=== PATIENT | female | born 1970 | race American Indian/Alaskan Native ===

== ENCOUNTER 2018-01-19 04:06 | Emergency (ER) | payer MEDICAID, OTHER ==
[2018-01-19 04:10] VITALS: BMI 24.5
[2018-01-19] MEDS ORDERED: Morphine 2 mg/ml ISec IVP STA ×2 (04:23→09:31)
--- NOTE | 2018-01-19 04:26 | ED PDOC ---
Arrival/HPI - General Chief Complaint: Chest Pain Time Seen by Provider: 01/19/18 04:09 Historian: Patient - History of Present Illness Narrative History of Present Illness (Text): 01/19/18 04:23 47 year old female, with no significant past medical history, presents to the emergency department with abdominal pain, since 2 days prior. Patient states pain worsened today and is localized in the RUQ, along with associated vomiting. Patient denies any fever, chills, headache, dizziness, chest pain, shortness of breath, cough, neck pain, urinary/bowel changes, or any other complaint. Time/Duration: Prior to Arrival Past Medical History - Provider Review Nursing Documentation Reviewed: Yes - Infectious Disease Hx of Infectious Diseases: None - Tetanus Immunization Tetanus Immunization: Unknown - Past Medical History Past Medical History: No Previous - Psychiatric Hx Physical Abuse: No Hx Substance Use: No - Past Surgical History Past Surgical History: No Previous - Suicidal Assessment Feels Threatened In Home Enviroment: No Family/Social History - Physician Review Nursing Documentation Reviewed: Yes Family/Social History: No Known Family HX Hx Alcohol Use: Yes (SOCIAL) Hx Substance Use: No Allergies/Home Meds Allergies/Adverse Reactions: Allergies No Known Allergies Allergy (Verified 01/19/18 04:09) Review of Systems - Physician Review All systems were reviewed & negative as marked: Yes - Review of Systems Constitutional: Normal. absent: Fevers, Night Sweats Eyes: Normal ENT: Normal Respiratory: Normal. absent: SOB, Cough Cardiovascular: Normal. absent: Chest Pain Gastrointestinal: Abdominal Pain (RUQ), Nausea, Vomiting Genitourinary Female: Normal. absent: Urine Output Changes Musculoskeletal: Normal. absent: Neck Pain Skin: Normal Neurological: Normal. absent: Headache, Dizziness Endocrine: Normal Hemo/Lymphatic: Normal Psychiatric: Normal Physical Exam Vital Signs Reviewed: Yes Vital Signs Temp Pulse Resp BP BP Pulse Ox 01/19/18 11:57 98.2 F 69 19 98 01/19/18 10:12 65 18 125/69 100 01/19/18 09:00 68 18 128/74 100 01/19/18 07:20 65 18 131/79 100 01/19/18 05:54 68 18 132/86 100 01/19/18 04:30 127/87 01/19/18 04:20 97.6 F 68 20 127/87 100 Temperature: Afebrile Blood Pressure: Normal Pulse: Regular Respiratory Rate: Normal Appearance: Positive for: Well-Appearing, Non-Toxic, Comfortable Pain Distress: None Mental Status: Positive for: Alert and Oriented X 3 - Systems Exam Head: Present: Atraumatic, Normocephalic Pupils: Present: PERRL Extroacular Muscles: Present: EOMI Conjunctiva: Present: Normal Mouth: Present: Moist Mucous Membranes Neck: Present: Normal Range of Motion Respiratory/Chest: Present: Clear to Auscultation, Good Air Exchange. No: Respiratory Distress, Accessory Muscle Use Cardiovascular: Present: Regular Rate and Rhythm, Normal S1, S2. No: Murmurs Abdomen: Present: Tenderness (RUQ). No: Distention, Peritoneal Signs Back: Present: Normal Inspection Upper Extremity: Present: Normal Inspection. No: Cyanosis, Edema Lower Extremity: Present: Normal Inspection. No: Edema Neurological: Present: GCS=15, CN II-XII Intact, Speech Normal Skin: Present: Warm, Dry, Normal Color. No: Rashes Psychiatric: Present: Alert, Oriented x 3, Normal Insight, Normal Concentration Medical Decision Making ED Course and Treatment: 01/19/18 04:28 Impression: 47 year old female presents with RUQ pain and vomiting. Plan: -- EKG -- Morphine -- Zofran -- Labs -- Urinalysis -- Reassess and disposition Prior Visits: Notes and results from previous visits were reviewed. Progress Notes: - Lab Interpretations Lab Results: 01/19/18 04:30 01/19/18 04:30 Lab Results 01/19/18 07:45: Urine HCG, Qual Negative 01/19/18 07:45: Urine Color Yellow, Urine Appearance Clear, Urine pH 8.0, Ur Specific [place] 1.015, Urine Protein Trace H, Urine Glucose (UA) Negative, Urine Ketones >=80, Urine Blood Negative, Urine Nitrate Negative, Urine Bilirubin Negative, Urine Urobilinogen 0.2, Ur Leukocyte Esterase Negative, Urine RBC 0 - 2, Urine WBC 1 - 3, Ur Epithelial Cells 4 - 5, Amorphous Sediment Moderate, Urine Bacteria Many, Urine Other Uyeast 01/19/18 04:30: Beta HCG, Quant < 2.39 01/19/18 04:30: Sodium 140, Potassium 4.0, Chloride 105, Carbon Dioxide 23, Anion Gap 15, BUN 14, Creatinine 0.7, Est GFR ( Amer) > 60, Est GFR (Non- Af Amer) > 60, Random Glucose 111 H, Calcium 10.0, Total Bilirubin 0.6, AST 30, ALT 22, Alkaline Phosphatase 59, Lactate Dehydrogenase 585, Total Creatine Kinase 143, Troponin I < 0.01, Total Protein 8.6 H, Albumin 4.9 H, Globulin 3.8 , Albumin/Globulin Ratio 1.3, Amylase 92, Lipase 41 01/19/18 04:30: PT 11.8, INR 1.03, APTT 28.6 01/19/18 04:30: WBC 7.8 D, RBC 4.42, Hgb 14.3, Hct 41.6, MCV 94.1, MCH 32.4, MCHC 34.4, RDW 14.3, Plt Count 215, MPV 9.6, Gran % 61.6, Lymph % (Auto) 28.3, [place] % (Auto) 8.5 H, Eos % (Auto) 1.3 L, Baso % (Auto) 0.3, Gran # 4.80, Lymph # (Auto) 2.2, [place] # (Auto) 0.7 H, Eos # (Auto) 0.1, Baso # (Auto) 0.02 - RAD Interpretation Radiology Orders: 01/19/18 06:24 GALL BLADDER [US] Stat - EKG Interpretation EKG Interpretation (Text): 01/19/18 06:29 nsr rate 80 - Medication Orders Current Medication Orders: Discontinued Medications Sodium Chloride (Sodium Chloride 0.9%) 1,000 mls @ 80 mls/hr IV .[id number] [facility] Last Admin: 01/19/18 04:49 Dose: 80 mls/hr eMAR Start Stop Document 01/19/18 04:49 JINA (Rec: 01/19/18 04:49 RG [id number]) Intravenous Solution Start Date 01/19/18 Start Time 04:49 Piperacillin Sod/Tazobactam Sod (Zosyn 4.5 Gm In Ns 100ml) 4.5 gm in 100 mls @ 200 mls/hr IVPB STAT STA PRN Reason: Protocol Stop: 01/19/18 09:57 Last Admin: 01/19/18 10:07 Dose: 200 mls/hr eMAR Start Stop Document 01/19/18 10:07 CLAIRE (Rec: 01/19/18 10:[address] [facility] [place]-[id number]) Intravenous Solution Start Date 01/19/18 Start Time 10:07 End Date 01/19/18 End time 10:37 Total Infusion Time 30 Morphine Sulfate (Morphine) 2 mg IVP STAT STA Stop: 01/19/18 04:24 Last Admin: 01/19/18 04:45 Dose: 2 mg MAR Pain Assessment Document 01/19/18 04:45 (Rec: 01/19/18 04:48 [id number] Pain Reassessment Is this a pain reassessment? Yes Sleep Is patient sleeping during reassessment? No Presence of Pain Presence of Pain Yes Pain Scale Used Pain Scale Used Numeric Location Left, Right or Bilateral Right Upper or Lower Upper Pain Location Body Site Abdomen Description Description Pressure Pain Behavior Crying Guarding Withdrawal from Touch Facial Grimacing IVP Administration Document 01/19/18 04:45 RG (Rec: 01/19/18 04:48 [id number] Charges for Administration # of IVP Administrations 1 Re-Assess: MAR Pain Assessment Document 01/19/18 05:45 RG (Rec: 01/19/18 06:13 [id number] Pain Reassessment Is this a pain reassessment? Yes Sleep Is patient sleeping during reassessment? No Presence of Pain Presence of Pain Yes Description Pain not relieved and LIP/MD was Yes notified Morphine Sulfate (Morphine) 2 mg IVP Q4H PRN PRN Reason: Pain, moderate (4-7) Last Admin: 01/19/18 05:53 Dose: 2 mg MAR Pain Assessment Document 01/19/18 05:53 RG (Rec: 01/19/18 05:54 [id number]) Pain Reassessment Is this a pain reassessment? Yes Sleep Is patient sleeping during reassessment? No Presence of Pain Presence of Pain Yes Pain Scale Used Pain Scale Used Numeric Location Left, Right or Bilateral Bilateral Upper or Lower Upper Pain Location Body Site Abdomen Description Description Pressure Pain Behavior Crying Rubbing Site Aggravating Factors Contant Pain not relieved and LIP/MD was Yes notified IVP Administration Document 01/19/18 05:53 RG (Rec: 01/19/18 05:54 [id number]) Charges for Administration # of IVP Administrations 1 Morphine Sulfate (Morphine) 2 mg IVP STAT STA Stop: 01/19/18 09:32 Last Admin: 01/19/18 10:06 Dose: 2 mg MAR Pain Assessment Document 01/19/18 10:06 CLAIRE (Rec: 01/19/18 10:06 [id number]) Pain Reassessment Is this a pain reassessment? Yes Sleep Is patient sleeping during reassessment? Yes Location Upper or Lower Upper Pain Location Body Site Abdomen Description Intensity of Pain at present 8 IVP Administration Document 01/19/18 10:06 CLAIRE (Rec: 01/19/18 10:06 [facility] [id number]) Charges for Administration # of IVP Administrations 1 Ondansetron HCl (Zofran Inj) 4 mg IVP STAT STA Stop: 01/19/18 04:24 Last Admin: 01/19/18 04:42 Dose: 4 mg IVP Administration Document 01/19/18 04:42 RG (Rec: 01/19/18 04:48 RG [id number]) Charges for Administration # of IVP Administrations 1 - Transfer of Care Patient signed out to Dr:: mary harris and dispo - Scribe Statement The provider has reviewed the documentation as recorded by the Scribmerced Cowan Provider Scribe Attestation: All medical record entries made by the Scribe were at my direction and personally dictated by me. I have reviewed the chart and agree that the record accurately reflects my personal performance of the history, physical exam, medical decision making, and the department course for this patient. I have also personally directed, reviewed, and agree with the discharge instructions and disposition. Disposition/Present on Arrival - Present on Arrival Any Indicators Present on Arrival: No History of DVT/PE: No History of Uncontrolled Diabetes: No Urinary Catheter: No History of Decub. Ulcer: No History Surgical Site Infection Following: None - Disposition Have Diagnosis and Disposition been Completed?: Yes Diagnosis: Biliary colic Disposition Time: 07:00 Condition: FAIR Discharge Instructions (ExitCare): Gallstones (DC) Additional Instructions: AMARILYS BOWMAN, thank you for letting us take care of you today. Your provider was Fortunato De Los Santos DO and you were treated for Gallstones. The emergency medical care you received today was directed at your acute symptoms. If you were prescribed any medication, please fill it and take as directed. It may take several days for your symptoms to resolve. Return to the Emergency Department if your symptoms worsen, do not improve, or if you have any other problems. You signed against medical advice and we recommend that you stay but since you are leaving I recommend you return to the ED if you have any symptoms, especially if they get worse. Please contact your doctor or call one of the physicians/clinics you have been referred to that are listed on the Patient Visit Information form that is included in your discharge packet. Bring any paperwork you were given at discharge with you along with any medications you are taking to your follow up visit. Our treatment cannot replace ongoing medical care by a primary care provider outside of the emergency department. Thank you for allowing the [facility] team to be part of your care today. If you had an X-Ray or CT scan: A Radiologist will review the ED reading if any change in treatment is needed we will contact you. If you had a blood, urine, or wound culture: It will take several days for the results, if any change in treatment is needed we will contact you. If you had an STI test: It will take 48 hours for the results. Please call after 1 week if you have not heard back. Prescriptions: Ciprofloxacin [Cipro] 500 mg PO Q12 #10 tab metroNIDAZOLE [Flagyl] 500 mg PO TID #15 tab Acetaminophen [Tylenol Extra Strength] 500 mg PO Q4 #30 tablet Ranitidine HCl [Zantac] 150 mg PO BID PRN #30 tablet PRN Reason: Pain, Mild (1-3) Referrals: Sandra Brown MD [Primary Care Provider] - Follow up with primary Ameya Mota MD [Staff Provider] - Follow up with primary Bladimir Hughes MD [Medical Doctor] - Follow up with primary Forms: [employer] (Mexican), WORK NOTE
[2018-01-19] MEDS ORDERED: Sodium Chloride 0.9% 1,000 ML IV SCH (04:30)
[2018-01-19 05:28] LABS: BASO # 0.02 K/mm3 (0.0-2.0); BASO % 0.3 % (0.0-3.0); EOS # 0.1 (0.0-0.7); EOS % 1.3 % (1.5-5.0); GRAN # 4.8 (1.4-6.5); GRAN % 61.6 % (50.0-68.0); HEMOGLOBIN 14.3 g/dL (12.0-16.0); LYMPH # 2.2 (1.2-3.4); LYMPH % 28.3 % (22.0-35.0); MEAN CELL VOLUME 94.1 fl (80.0-105.0); MEAN CORPUSCULAR HEMOGLOBIN 32.4 pg (25.0-35.0); MEAN CORPUSCULAR HGB CONC 34.4 g/dl (31.0-37.0); MEAN PLATELET VOLUME 9.6 fl (7.0-11.0); MONO # 0.7 (0.1-0.6); MONO % 8.5 % (1.0-6.0); RBC 4.42 10^6/uL (3.5-6.1); RED CELL DISTRIBUTION WIDTH 14.3 % (11.5-14.5); WHITE BLOOD COUNT 7.8 10^3/ul (4.5-11.0)
[2018-01-19 05:30] LABS: ALB/GLOB RATIO 1.3 (1.1-1.8); ALBUMIN 4.9 g/dL (3.0-4.8); ALT/SGPT 22 U/L (7-56); AMYLASE 92 U/L (35-125); AST/SGOT 30 U/L (14-36); BLOOD UREA NITROGEN 14 mg/dL (7-21); GFR NON-AFRICAN AMERICAN > 60; LIPASE 41 U/L (23-300)
[2018-01-19 05:40] LABS: INR 1.03; PARTIAL THROMBOPLASTIN TIME 28.6 Seconds (25.1-36.5); PROTHROMBIN TIME 11.8 SECONDS (9.4-12.5)
[2018-01-19 05:41] LABS: TROPONIN I < 0.01 ng/mL
[2018-01-19] MEDS ORDERED: Morphine 2 mg/ml ISec IVP PRN (05:47)
--- NOTE | 2018-01-19 07:35 | ED PDOC ---
Physical Exam Vital Signs Temp Pulse Resp BP BP Pulse Ox 01/19/18 10:12 65 18 125/69 100 01/19/18 09:00 68 18 128/74 100 01/19/18 07:20 65 18 131/79 100 01/19/18 05:54 68 18 132/86 100 01/19/18 04:30 127/87 01/19/18 04:20 97.6 F 68 20 127/87 100 Medical Decision Making ED Course and Treatment: 01/19/18 07:05 Case endorsed to me by Dr. Chaney pending Gallbladder Ultrasound, Urinalysis, reassessment, and disposition. EXAM: US Abdomen Limited, Right Upper Quadrant Dictated and Authenticated by: Alisha Andrade MD 01/19/2018 7:12 AM IMPRESSION: There are multiple gallstones some of which are stuck in the gallbladder neck and are mobile. 3 mm gallbladder wall.There was no right upper quadrant tenderness during the sonographic examination. Correlation with patient's pain medication status is recommended. Correlation with clinical data is recommended to evaluate for acute obstructive cholecystitis. 01/19/18 07:38 On re-examination, patient has epigastric and right upper quadrant tenderness with guarding. Ultrasound reviewed by me with gallstones. president financial institution paged. 01/19/18 07:57 Case discussed with surgical attendant who is aware and agree with the plan. Page sent out to Dr. Shelby Posey surgical attending. 01/19/18 08:26 Case discussed with surgical attending, Dr. Posey who agrees to admit her under his service for possible surgery. I discussed this with the patient but she is unsure at this time whether she wants to be admitted and will wait for the surgical team to come and see her. Morphine given for more pain control. Patient does not want to stay in the hospital. She wants to go home because she has a job she needs to attend to. She waiting for surgical team to see her. Dr. Posey recommended Zosyn IV. If she doesn't agree to stay he recommends sending her home AMA with Cipro and Flagyl x 5 days. 01/19/18 11:33 Leaving Against Medical Advice (AMA): The patient is choosing to leave against medical advice. I have personally explained to the patient that choosing to do so may result in permanent bodily harm or . I have discussed at great length that without further evaluation and monitoring there may be unforeseen circumstances and/or deterioration causing permanent bodily harm or as a result of their choice. The patient is alert, oriented, and shows the mental capacity to make clear decisions regarding the patients health care at this time. The patient continues to wish to leave against medical advice. In light of the patients decision to leave against medical advice, follow-up has been arranged and the patient is aware of the importance to following up as instructed. The patient has been advised that they should return to the emergency room immediately if they change their mind at any time, or if their condition begins to change or worsen in any way. 01/19/18 12:44 - Lab Interpretations Lab Results: 01/19/18 04:30 01/19/18 04:30 Lab Results 01/19/18 07:45: Urine HCG, Qual Negative 01/19/18 07:45: Urine Color Yellow, Urine Appearance Clear, Urine pH 8.0, Ur Specific [place] 1.015, Urine Protein Trace H, Urine Glucose (UA) Negative, Urine Ketones >=80, Urine Blood Negative, Urine Nitrate Negative, Urine Bilirubin Negative, Urine Urobilinogen 0.2, Ur Leukocyte Esterase Negative, Urine RBC 0 - 2, Urine WBC 1 - 3, Ur Epithelial Cells 4 - 5, Amorphous Sediment Moderate, Urine Bacteria Many, Urine Other Uyeast 01/19/18 04:30: Beta HCG, Quant < 2.39 01/19/18 04:30: Sodium 140, Potassium 4.0, Chloride 105, Carbon Dioxide 23, Anion Gap 15, BUN 14, Creatinine 0.7, Est GFR ( Amer) > 60, Est GFR (Non- Af Amer) > 60, Random Glucose 111 H, Calcium 10.0, Total Bilirubin 0.6, AST 30, ALT 22, Alkaline Phosphatase 59, Lactate Dehydrogenase 585, Total Creatine Kinase 143, Troponin I < 0.01, Total Protein 8.6 H, Albumin 4.9 H, Globulin 3.8 , Albumin/Globulin Ratio 1.3, Amylase 92, Lipase 41 01/19/18 04:30: PT 11.8, INR 1.03, APTT 28.6 01/19/18 04:30: WBC 7.8 D, RBC 4.42, Hgb 14.3, Hct 41.6, MCV 94.1, MCH 32.4, MCHC 34.4, RDW 14.3, Plt Count 215, MPV 9.6, Gran % 61.6, Lymph % (Auto) 28.3, [place] % (Auto) 8.5 H, Eos % (Auto) 1.3 L, Baso % (Auto) 0.3, Gran # 4.80, Lymph # (Auto) 2.2, [place] # (Auto) 0.7 H, Eos # (Auto) 0.1, Baso # (Auto) 0.02 - RAD Interpretation Radiology Orders: 01/19/18 06:24 GALL BLADDER [US] Stat - Medication Orders Current Medication Orders: Sodium Chloride (Sodium Chloride 0.9%) 1,000 mls @ 80 mls/hr IV .[id number] Last Admin: 01/19/18 04:49 Dose: 80 mls/hr eMAR Start Stop Document 01/19/18 04:49 (Rec: 01/19/18 04:49 [id number]) Intravenous Solution Start Date 01/19/18 Start Time 04:49 Morphine Sulfate (Morphine) 2 mg IVP Q4H PRN PRN Reason: Pain, moderate (4-7) Last Admin: 01/19/18 05:53 Dose: 2 mg MAR Pain Assessment Document 01/19/18 05:53 (Rec: 01/19/18 05:54 [id number] Pain Reassessment Is this a pain reassessment? Yes Sleep Is patient sleeping during reassessment? No Presence of Pain Presence of Pain Yes Pain Scale Used Pain Scale Used Numeric Location Left, Right or Bilateral Bilateral Upper or Lower Upper Pain Location Body Site Abdomen Description Description Pressure Pain Behavior Crying Rubbing Site Aggravating Factors Contant Pain not relieved and LIP/MD was Yes notified IVP Administration Document 01/19/18 05:53 (Rec: 01/19/18 05:54 [id number]) Charges for Administration # of IVP Administrations 1 Discontinued Medications Piperacillin Sod/Tazobactam Sod (Zosyn 4.5 Gm In Ns 100ml) 4.5 gm in 100 mls @ 200 mls/hr IVPB STAT STA PRN Reason: Protocol Stop: 01/19/18 09:57 Last Admin: 01/19/18 10:07 Dose: 200 mls/hr eMAR Start Stop Document 01/19/18 10:07 CLAIRE (Rec: 01/19/18 10:07 [id number]) Intravenous Solution Start Date 01/19/18 Start Time 10:07 End Date 01/19/18 End time 10:37 Total Infusion Time 30 Morphine Sulfate (Morphine) 2 mg IVP STAT STA Stop: 01/19/18 04:24 Last Admin: 01/19/18 04:45 Dose: 2 mg [facility] Pain Assessment Document 01/19/18 04:45 RG (Rec: 01/19/18 04:48 [id number] Pain Reassessment Is this a pain reassessment? Yes Sleep Is patient sleeping during reassessment? No Presence of Pain Presence of Pain Yes Pain Scale Used Pain Scale Used Numeric Location Left, Right or Bilateral Right Upper or Lower Upper Pain Location Body Site Abdomen Description Description Pressure Pain Behavior Crying Guarding Withdrawal from Touch Facial Grimacing IVP Administration Document 01/19/18 04:45 RG (Rec: 01/19/18 04:48 [id number] Charges for Administration # of IVP Administrations 1 Re-Assess: [facility] Pain Assessment Document 01/19/18 05:45 RG (Rec: 01/19/18 06:13 [id number][facility] Pain Reassessment Is this a pain reassessment? Yes Sleep Is patient sleeping during reassessment? No Presence of Pain Presence of Pain Yes Description Pain not relieved and LIP/MD was Yes notified Morphine Sulfate (Morphine) 2 mg IVP STAT STA Stop: 01/19/18 09:32 Last Admin: 01/19/18 10:06 Dose: 2 mg MAR Pain Assessment Document 01/19/18 10:06 CLAIRE (Rec: 01/19/18 10:06 [id number]) Pain Reassessment Is this a pain reassessment? Yes Sleep Is patient sleeping during reassessment? Yes Location Upper or Lower Upper Pain Location Body Site Abdomen Description Intensity of Pain at present 8 IVP Administration Document 01/19/18 10:06 CLAIRE (Rec: 01/19/18 10:06 [facility] [id number]) Charges for Administration # of IVP Administrations 1 Ondansetron HCl (Zofran Inj) 4 mg IVP STAT STA Stop: 01/19/18 04:24 Last Admin: 01/19/18 04:42 Dose: 4 mg IVP Administration Document 01/19/18 04:42 JINA (Rec: 01/19/18 04:48 RG [id number]) Charges for Administration # of IVP Administrations 1 - Scribe Statement The provider has reviewed the documentation as recorded by the Milagrosibmerced Hagen Provider Scribe Attestation: All medical record entries made by the Scribe were at my direction and personally dictated by me. I have reviewed the chart and agree that the record accurately reflects my personal performance of the history, physical exam, medical decision making, and the department course for this patient. I have also personally directed, reviewed, and agree with the discharge instructions and disposition. Disposition/Present on Arrival - Present on Arrival Any Indicators Present on Arrival: No History of DVT/PE: No History of Uncontrolled Diabetes: No Urinary Catheter: No History of Decub. Ulcer: No History Surgical Site Infection Following: None - Disposition Have Diagnosis and Disposition been Completed?: Yes Diagnosis: Biliary colic Disposition Time: 11:50 Patient Plan: Discharge Condition: FAIR Discharge Instructions (ExitCare): Gallstones (DC) Additional Instructions: AMARILYS BOWMAN, thank you for letting us take care of you today. Your provider was Fortunato De Los Santos DO and you were treated for Gallstones. The emergency medical care you received today was directed at your acute symptoms. If you were prescribed any medication, please fill it and take as directed. It may take several days for your symptoms to resolve. Return to the Emergency Department if your symptoms worsen, do not improve, or if you have any other problems. You signed against medical advice and we recommend that you stay but since you are leaving I recommend you return to the ED if you have any symptoms, especially if they get worse. Please contact your doctor or call one of the physicians/clinics you have been referred to that are listed on the Patient Visit Information form that is included in your discharge packet. Bring any paperwork you were given at discharge with you along with any medications you are taking to your follow up visit. Our treatment cannot replace ongoing medical care by a primary care provider outside of the emergency department. Thank you for allowing the [facility] team to be part of your care today. If you had an X-Ray or CT scan: A Radiologist will review the ED reading if any change in treatment is needed we will contact you. If you had a blood, urine, or wound culture: It will take several days for the results, if any change in treatment is needed we will contact you. If you had an STI test: It will take 48 hours for the results. Please call after 1 week if you have not heard back. Prescriptions: Acetaminophen [Tylenol Extra Strength] 500 mg PO Q4 #30 tablet Ciprofloxacin [Cipro] 500 mg PO Q12 #10 tab metroNIDAZOLE [Flagyl] 500 mg PO TID #15 tab Ranitidine HCl [Zantac] 150 mg PO BID PRN #30 tablet PRN Reason: Pain, Mild (1-3) Referrals: Sandra Brown MD [Primary Care Provider] - Follow up with primary Ameya Mota MD [Staff Provider] - Follow up with primary Bladimir Hughes MD [Medical Doctor] - Follow up with primary Forms: [employer] (Welsh), WORK NOTE
[2018-01-19 08:05] LABS: URINE BILIRUBIN NEGATIVE (NEGATIVE); URINE BLOOD NEGATIVE (NEGATIVE); URINE GLUCOSE (UA) NEGATIVE (NEGATIVE); URINE LEUKOCYTE ESTERASE NEGATIVE Leu/uL (NEGATIVE); URINE PROTEIN TRACE mg/dL (<30 mg/dL); URINE UROBILINOGEN 0.2 E.U./dL (<1 E.U./dL)
[2018-01-19 08:08] LABS: URINE APPEARANCE CLEAR (CLEAR); URINE COLOR YELLOW (YELLOW)
[2018-01-19 08:26] LABS: URINE RBC 0 - 2 /hpf (0-2)
[2018-01-19 08:27] LABS: URINE AMORPHOUS SEDIMENT MODERATE; URINE BACTERIA MANY (NEG)
[2018-01-19] MEDS ORDERED: Piperacill/Tazo 4.5gm in NS 4.5 GM/100 ML BAG IVPB STA (09:28)
--- NOTE | 2018-01-19 09:41 | CARD ---
APPROVED REPORT Date of service: 01/19/2018 EKG Measurement Heart [id number] <Conclusion> Normal sinus rhythm Normal ECG
[2018-01-19 10:13] VITALS: BP 125/69
--- NOTE | 2018-01-19 11:47 | US ---
Date of service: 01/19/2018 HISTORY: Right upper quadrant pain. COMPARISON: None. TECHNIQUE: Sonographic evaluation of the right upper quadrant of the abdomen. FINDINGS: LIVER: Measures 14.9 Patent portal vein. Portal venous flow: Hepatopetal. Unremarkable cm in length. Normal echogenicity of the liver parenchyma. No mass. No intrahepatic bile duct dilatation. GALLBLADDER: Cholelithiasis. Negative study for gallbladder wall thickening, pericholecystic fluid, sonographic Hein's sign. COMMON BILE DUCT: Measures 4.3 mm. No stones. No dilatation. PANCREAS: Unremarkable as visualized. No mass. No ductal dilatation. RIGHT KIDNEY: Measures 4.2 x 11.5 cm in length. Normal echogenicity. No calculus, mass, or hydronephrosis. AORTA: No aneurysmal dilatation. IVC: Unremarkable. OTHER FINDINGS: None . IMPRESSION: Cholelithiasis. No sonographic evidence of acute cholecystitis.
--- NOTE | 2018-01-19 11:56 | CP.PCM.CON ---
History of Present Illness - History of Present Illness History of Present Illness: General Surgery Consult Note for Dr. Mota CC: abdominal pain 47 year old female with no past medical history presents to ED with complaint of worsening right upper quadrant abdominal pain. Pain began last night following a fatty meal of buttermilk, and became more severe into the morning hours, with radiation into right lower quadrant. In the past, primary physician placed patient on high-fat, high-calorie diet, since she has difficulty maintaining a steady weight. Patient reports similar episodes have occurred in the past, but they were less severe, and no exams were performed. Patient has vomited twice non-bilious, non-bloody, and complains of continued nausea. Patient denies fevers, chills, chest pain. PMH: denied Past Surgical Hx: bilateral salpingectomy 15 years ago for ectopic Meds: denied Allergies: NKDA Family Hx: grandparent had stomach cancer Review of Systems - Review of Systems All systems: reviewed and no additional remarkable complaints except - Constitutional Constitutional: Excessive Sweating, Weakness. absent: Chills, Fever, Weight Loss - Cardiovascular Cardiovascular: absent: Chest Pain, Dyspnea - Respiratory Respiratory: absent: Dyspnea - Gastrointestinal Gastrointestinal: Abdominal Pain, Nausea, Vomiting. absent: Hematemesis - Genitourinary Genitourinary: absent: Difficulty Urinating, Dysuria, Hematuria Past Patient History - Infectious Disease Hx of Infectious Diseases: None - Tetanus Immunizations Tetanus Immunization: Unknown - Past Social History Smoking Status: Light Smoker < 10 Cigarettes Daily Alcohol: Occasional - PSYCHIATRIC Hx Physical Abuse: No Hx Substance Use: No - SURGICAL HISTORY Hx Tubal Ligation: Yes Other/Comment: Bilateral Salpingectomy Meds Home Medications: Home Medication List Medication Instructions Recorded Confirmed Type Acetaminophen [Tylenol Extra 500 mg PO Q4 #30 tablet 01/19/18 Rx Strength] Ciprofloxacin [Cipro] 500 mg PO Q12 #10 tab 01/19/18 Rx Ranitidine HCl [Zantac] 150 mg PO BID PRN #30 tablet 01/19/18 Rx metroNIDAZOLE [Flagyl] 500 mg PO TID #15 tab 01/19/18 Rx Allergies/Adverse Reactions: Allergies Allergy/AdvReac Type Severity Reaction Status Date / Time No Known Allergies Allergy Verified 01/19/18 04:09 - Medications Medications: Current Medications Sodium Chloride (Sodium Chloride 0.9%) 1,000 mls @ 80 mls/hr IV .[id number] AIRAM Last Admin: 01/19/18 04:49 Dose: 80 mls/hr Morphine Sulfate (Morphine) 2 mg IVP Q4H PRN PRN Reason: Pain, moderate (4-7) Last Admin: 01/19/18 05:53 Dose: 2 mg Physical Exam - Constitutional Appears: Non-toxic, No Acute Distress - Head Exam Head Exam: ATRAUMATIC, NORMOCEPHALIC - Eye Exam Eye Exam: EOMI, Scleral icterus (Mild, chronic) - Respiratory Exam Respiratory Exam: NORMAL BREATHING PATTERN - Cardiovascular Exam Cardiovascular Exam: REGULAR RHYTHM, +S1, +S2 - GI/Abdominal Exam GI & Abdominal Exam: Soft, Tenderness (RUQ). absent: Distended, Firm, Rigid - Extremities Exam Extremities exam: Positive for: pedal pulses present. Negative for: joint swelling, pedal edema - Neurological Exam Neurological exam: Alert, Oriented x3 - Skin Skin Exam: Dry, Intact Results - Vital Signs Recent Vital Signs: Last Vital Signs Temp 97.6 F 01/19/18 04:20 Pulse 65 01/19/18 10:12 Resp 18 01/19/18 10:12 BP 125/69 01/19/18 10:12 Pulse Ox 100 01/19/18 10:12 - Labs Result Diagrams: 01/19/18 04:30 01/19/18 04:30 Labs: Laboratory Results - last 24 hr 01/19/18 01/19/18 01/19/18 04:30 04:30 04:30 WBC 7.8 D RBC 4.42 Hgb 14.3 Hct 41.6 MCV 94.1 MCH 32.4 MCHC 34.4 RDW 14.3 Plt Count 215 MPV 9.6 Gran % 61.6 Lymph % (Auto) 28.3 Winkler % (Auto) 8.5 H Eos % (Auto) 1.3 L Baso % (Auto) 0.3 Gran # 4.80 Lymph # (Auto) 2.2 Winkler # (Auto) 0.7 H Eos # (Auto) 0.1 Baso # (Auto) 0.02 PT 11.8 INR 1.03 APTT 28.6 Sodium 140 Potassium 4.0 Chloride 105 Carbon Dioxide 23 Anion Gap 15 BUN 14 Creatinine 0.7 Est GFR ( Amer) > 60 Est GFR (Non-Af Amer) > 60 Random Glucose 111 H Calcium 10.0 Total Bilirubin 0.6 AST 30 ALT 22 Alkaline Phosphatase 59 Lactate Dehydrogenase 585 Total Creatine Kinase 143 Troponin I < 0.01 Total Protein 8.6 H Albumin 4.9 H Globulin 3.8 Albumin/Globulin Ratio 1.3 Amylase 92 Lipase 41 Beta HCG, Quant Urine Color Urine Appearance Urine pH Ur Specific Padroni Urine Protein Urine Glucose (UA) Urine Ketones Urine Blood Urine Nitrate Urine Bilirubin Urine Urobilinogen Ur Leukocyte Esterase Urine RBC Urine WBC Ur Epithelial Cells Amorphous Sediment Urine Bacteria Urine Other Urine HCG, Qual 01/19/18 01/19/18 01/19/18 04:30 07:45 07:45 WBC RBC Hgb Hct MCV MCH MCHC RDW Plt Count MPV Gran % Lymph % (Auto) Winkler % (Auto) Eos % (Auto) Baso % (Auto) Gran # Lymph # (Auto) Winkler # (Auto) Eos # (Auto) Baso # (Auto) PT INR APTT Sodium Potassium Chloride Carbon Dioxide Anion Gap BUN Creatinine Est GFR ( Amer) Est GFR (Non-Af Amer) Random Glucose Calcium Total Bilirubin AST ALT Alkaline Phosphatase Lactate Dehydrogenase Total Creatine Kinase Troponin I Total Protein Albumin Globulin Albumin/Globulin Ratio Amylase Lipase Beta HCG, Quant < 2.39 Urine Color Yellow Urine Appearance Clear Urine pH 8.0 Ur Specific Padroni 1.015 Urine Protein Trace H Urine Glucose (UA) Negative Urine Ketones >=80 Urine Blood Negative Urine Nitrate Negative Urine Bilirubin Negative Urine Urobilinogen 0.2 Ur Leukocyte Esterase Negative Urine RBC 0 - 2 Urine WBC 1 - 3 Ur Epithelial Cells 4 - 5 Amorphous Sediment Moderate Urine Bacteria Many Urine Other Uyeast Urine HCG, Qual Negative - Imaging and Cardiology US - abdomen Status: Image reviewed by me, Report reviewed by me Assessment & Plan - Assessment and Plan (Free Text) Assessment: 47 year old female with symptomatic cholelithiasis Abdominal ultrasound showed cholelithiasis with no gallbladder wall thickening or pericholecystic fluid. Common bile duct measures 4.3 mm with no stones or dilatation. Discussed complications of gallstones with patient, and that if her symptoms should worsen, to return to ER. Patient wanted to leave the hospital, despite surgical recommendations. Patient prescribed a course of Cipro/Flagyl for 5 days Given recommendations for followup in Wednesday Surgical clinic [phone] D/W Dr. Nakul Saxena PGY3
[2018-01-19 11:58] VITALS: PULSE 69; RESP 19; TEMP 98.2; O2SAT 98
== END 2018-01-19 11:58 | disposition left against medical advice (07) ==
LOC: ED 04:06
DX: K80.50 Calculus of bile duct without cholangitis or cholecystitis without obstruction (principal); F17.210 Nicotine dependence, cigarettes, uncomplicated
CPT/HCPCS: 76705; 80053; 81001; 82150; 82550; 83615; 83690; 84484; 84702; 84703; 85025; 85610; 85730; 93005; 96365; 96375; 96376; 99285; J2270; J2405; J2543; J7030